=== PATIENT | male | born 1960 | race Two or more races ===

== ENCOUNTER 2018-01-02 12:39 | Emergency (ER) | payer MEDICAID ==
[~2018-01-02] VITALS: Ht 162.6 cm; Wt 59.0 kg
[2018-01-02 13:04] VITALS: Ht 162.6 cm; Wt 59.0 kg
[2018-01-02 13:48] LABS: BASOPHIL % 0.3 % (0-2); PLATELET COUNT 161 x10^3mcL (130-400)
[2018-01-02 13:49] LABS: RED CELL DISTRIBUTION WIDTH 15.2 % (11.5-14.5)
[2018-01-02 13:59] LABS: CALCIUM 8.7 mg/dL (8.5-10.1); CARBON DIOXIDE 25.5 mmol/L (21-32); CHLORIDE SERUM 94 mmol/L (98-107); CREATININE SERUM 0.6 mg/dL (0.7-1.3); GFR1 > 60 mL/min; GLUCOSE SERUM 318 mg/dL (74-106); POTASSIUM SERUM 3.4 mmol/L (3.5-5.1); SODIUM SERUM 133 mmol/L (136-145)
[2018-01-02 14:02] LABS: ALBUMIN 3.4 g/dL (3.4-5.0); ALKALINE PHOSPHATASE 234 U/L (46-116); ALT/SGPT 107 U/L (16-63); AST/SGOT 142 U/L (15-37); BILIRUBIN TOTAL 0.7 mg/dL (0.20-1.00); TOTAL PROTEIN, SERUM 8.4 g/dL (6.4-8.2)
[2018-01-02 15:34] LABS: microscopic required? YES; urine erythrocyte NEGATIVE (NEGATIVE)
[2018-01-02 15:44] LABS: AMPHETAMINE QUAL UR NONE DETECTED (NEG <=1000)
[2018-01-02 16:45] VITALS: BP 119/76
== END 2018-01-02 16:45 | disposition home or self-care (01) ==
LOC: ED 12:39
PROVIDERS: Emergency Medicine
DX: L03.811 Cellulitis of head [any part, except face] (principal); H60.11 Cellulitis of right external ear; E11.40 Type 2 diabetes mellitus with diabetic neuropathy, unspecified; I10 Essential (primary) hypertension; F10.129 Alcohol abuse with intoxication, unspecified; D64.9 Anemia, unspecified; K74.60 Unspecified cirrhosis of liver
CPT/HCPCS: 82962; 83880; 90715; G0480; J0690; J1815; J7030